=== PATIENT | female | born 1985 | race Caucasian/White ===

== ENCOUNTER → 2016-10-16 | Outpatient (REF) | LOC: WSOH 14:07 | DX: Z02.1 Encounter for pre-employment examination (principal) ==

== ENCOUNTER → 2017-07-29 | Outpatient (CLI) | payer OTHER | LOC: SUN.DIA 14:22 | DX: O24.419 Gestational diabetes mellitus in pregnancy, unspecified control (principal); Z3A.32 32 weeks gestation of pregnancy; Z71.3 Dietary counseling and surveillance | CPT/HCPCS: G0108 ==

== ENCOUNTER → 2017-08-11 | Outpatient (CLI) | payer OTHER | LOC: SUN.DIA 13:12 | DX: O24.419 Gestational diabetes mellitus in pregnancy, unspecified control (principal); Z3A.34 34 weeks gestation of pregnancy; Z71.3 Dietary counseling and surveillance | CPT/HCPCS: G0108 ==

== ENCOUNTER → 2017-08-27 | Outpatient (CLI) | payer SELFPAY | LOC: SUN.DIA 10:51 | DX: O24.419 Gestational diabetes mellitus in pregnancy, unspecified control (principal); Z3A.36 36 weeks gestation of pregnancy; Z71.3 Dietary counseling and surveillance | CPT/HCPCS: G0108 ==

== ENCOUNTER 2017-09-01 14:53 | Inpatient (IN) | payer OTHER ==
[~2017-09-01] VITALS: Ht 154.9 cm; Wt 75.9 kg
[2017-10-02 19:30] VITALS: BP 145/97; PULSE 85; TEMP 98.2
[2017-10-02 20:00] VITALS: BP 143/84; PULSE 68
[2017-10-02 20:30] VITALS: BP 143/85; PULSE 68
[2017-10-02] MEDS ORDERED: TUMS500 MG (20:51)
[2017-10-02 20:53] LABS: BASO % 0.2 % (0.0-2.0); EOS % 0.5 % (0-4.0); GRAN # 4.4 (1.4-6.5); HEMATOCRIT 39.4 % (37.0-47.0); HEMOGLOBIN 13.6 g/dl (12.5-16.0); LYMPH # 1.5 (1.2-3.4); LYMPH % 22.3 % (20.0-51.0); MEAN CELL VOLUME 93 fl (80.0-100.0); MEAN CORPUSCULAR HEMOGLOBIN 32 pg (27.0-31.0); MEAN CORPUSCULAR HGB CONC 35 g/dl (33.0-37.0); MEAN PLATELET VOLUME 11.5 fl (7.4-10.4); MONO # 0.6 (0.1-0.6); MONO % 9.8 % (1.7-9.3); PLATELET COUNT 161 K/mm3 (130-400); RED BLOOD COUNT 4.22 M/mm3 (4.10-5.30); REDCELL DISTRIBUTION WIDTH-CV 12.3 % (11.5-14.5)
[2017-10-02 21:00] VITALS: BP 148/88; PULSE 78; TEMP 98.2
[2017-10-02 21:30] VITALS: BP 134/84; PULSE 69
[2017-10-02 22:15] VITALS: BP 129/84; PULSE 87
[2017-10-03] VITALS (25 sets, daily range): BP systolic 103–148; BP diastolic 50–82; PULSE 70–104; TEMP 97.7–98.3
[2017-10-03] MEDS ORDERED: PERCOCET 325 MG1 TA2 PO (08:32)
[2017-10-03] MEDS ORDERED: IBU600 MG PO (08:32)
[2017-10-04 05:00] VITALS: BP 132/70; PULSE 82; TEMP 97.8
[2017-10-04 07:47] LABS: BASO % 0.2 % (0.0-2.0); EOS % 0.3 % (0-4.0); GRAN # 6.7 (1.4-6.5); GRAN % 74.5 % (42.2-75.2); LYMPH # 1.6 (1.2-3.4); LYMPH % 17.9 % (20.0-51.0); MEAN CELL VOLUME 96 fl (80.0-100.0); MEAN CORPUSCULAR HGB CONC 34 g/dl (33.0-37.0); MEAN PLATELET VOLUME 11.2 fl (7.4-10.4); MONO # 0.6 (0.1-0.6); MONO % 6.9 % (1.7-9.3); PLATELET COUNT 129 K/mm3 (130-400); REDCELL DISTRIBUTION WIDTH-CV 12.7 % (11.5-14.5)
[2017-10-04 07:55] LABS: HEMATOCRIT 32.7 % (37.0-47.0); MEAN CORPUSCULAR HEMOGLOBIN 32 pg (27.0-31.0)
[2017-10-04 08:00] VITALS: BP 131/73; PULSE 97; TEMP 97.6
[2017-10-04 16:20] VITALS: BP 138/80; PULSE 89; TEMP 97.3
[2017-10-04 21:00] VITALS: BP 135/87; PULSE 95; TEMP 98.5
[2017-10-05 07:30] VITALS: BP 135/69; PULSE 84; TEMP 97.9
== END 2017-10-05 15:10 | disposition home or self-care (01) | DRG 766 ==
LOC: EDSTATUS 09-26 10:39 → LDRO 09-26 14:52 → LDR 10-02 10:44 → OB 10-03 09:00
PROVIDERS: Obstetrics & Gynecology
PROC: 10D00Z1 Extraction of Products of Conception, Low, Open Approach (ICD-10-PCS; principal; 2017-10-03)
DX: O48.0 Post-term pregnancy (principal); O99.824 Streptococcus B carrier state complicating childbirth; O69.81X0 Labor and delivery complicated by cord around neck, without compression, not applicable or unspecified; O13.4 Gestational [pregnancy-induced] hypertension without significant proteinuria, complicating childbirth; O24.420 Gestational diabetes mellitus in childbirth, diet controlled; O76 Abnormality in fetal heart rate and rhythm complicating labor and delivery; Z3A.40 40 weeks gestation of pregnancy; Z37.0 Single live birth
CPT/HCPCS: J0690; J1885; J2175; J2370; J2400; J2405; J2540; J2590; J2704; J2795; J3010; J7120

== ENCOUNTER → 2017-09-14 | Outpatient (CLI) | payer OTHER | LOC: SUN.DIA 11:07 | DX: O24.419 Gestational diabetes mellitus in pregnancy, unspecified control (principal); Z3A.39 39 weeks gestation of pregnancy; Z71.3 Dietary counseling and surveillance | CPT/HCPCS: G0108 ==

== ENCOUNTER → 2017-10-06 | Outpatient (CLI) | payer OTHER ==
[~2017-10-06] MED LIST: IBU600 MG PO; PERCOCET 325 MG1 TA2 PO; TUMS500 MG
== END ==
LOC: LAC 10:28
DX: Z39.1 Encounter for care and examination of lactating mother (principal); Z71.89 Other specified counseling